=== PATIENT | male | born 1985 | race African-American/Black ===

== ENCOUNTER 2024-06-06 19:52 | Emergency (ER) | payer OTHER, SELFPAY ==
[2024-06-06 20:14] VITALS: BP 157/90; PULSE 113; RESP 15; TEMP 39.1; O2SAT 99
--- NOTE | 2024-06-06 20:26 | ED.URI ---
HPI - URI/Sore Throat General Chief Complaint: Upper Respiratory Infection Stated Complaint: cough Time Seen by Provider: 06/06/24 20:26 Source: patient, RN notes reviewed and old records reviewed Mode of arrival: ambulatory Limitations: no limitations History of Present Illness HPI Narrative: Patient presents with complaints of flu-like symptoms that have been present for 1 day. He has not taken anything for his symptoms. He is not in any distress, but does appear uncomfortable Related Data Allergies Allergy/AdvReac Type Severity Reaction Status Date / Time No Known Allergies Allergy Verified 06/06/24 20:19 Review of Systems Review of Systems: All systems reviewed & are unremarkable except as noted in HPI and below Constitutional: Constitutional: Reports no additional constitutional complaints, Reports body ache(s), Reports chills, Reports excessive sweating, Reports fever(s) and Reports headache(s) ENT: Reports system reviewed and no additional complaints, except as documented, Reports nasal congestion, Reports nasal discharge and Reports sinus pressure Cardiovascular: Cardiovascular: Reports no additional cardiovascular complaints Respiratory: Respiratory: Reports no additional respiratory complaints and Reports cough Gastrointestinal: Gastrointestinal: Reports no additional gastrointestinal complaints PMFSH Comments At the time of my signature, I reviewed and agree with the nursing past medical, surgical, social, and family history. There is no relevant family history pertinent to the patient complaint. Exam Const: General: cooperative, no acute distress, alert and awake Orientation/consciousness: oriented to person, oriented to place and oriented to time HENMT: Head: normal to inspection Resp: Effort & Inspection: normal respiratory effort and able to speak in complete sentences Auscultation: clear to auscultation bilaterally, no crackles, no rales, no rhonchi and no wheezes Cardio: Palpation: normal PMI Rate: regular rate Rhythm: regular rhythm Heart sounds: S1 normal heart sound present and S2 normal heart sound present Neuro: General: oriented to person, oriented to place and oriented to time Cranial nerves: Yes CN's II-XII intact bilaterally Psych: Appearance: grossly normal Thought process: Normal thought process present Insight: Good insight present (Psych) Judgement: Good judgement present (Psych) Course Course Level of Care: Express Care Visit Vital Signs Vital signs: Vital Signs Temperature 102.3 F H 06/06/24 20:14 Pulse Rate 113 H 06/06/24 20:14 Respiratory Rate 15 06/06/24 20:14 Blood Pressure 157/90 H 06/06/24 20:14 Pulse Oximetry 99 06/06/24 20:14 Temperature 102.3 F H 06/06/24 20:14 Pulse Rate 113 H 06/06/24 20:14 Respiratory Rate 15 06/06/24 20:14 Blood Pressure 157/90 H 06/06/24 20:14 Pulse Oximetry 99 06/06/24 20:14 Reviewed MDM - URI/Sore Throat MDM Narrative Medical decision making narrative: Positive influenza. Patient counseled on supportive care measures. Elevated blood pressure, pulse, temperature discussed with patient. He agrees to follow with primary care provider. Emergency department for new or worse symptoms. Discharge instructions reviewed with patient, as well as provided in writing per nursing staff. The instructions also include specific and strict return/GO TO THE ER as well as f/u information. All questions have been answered, and the patient deny any further questions with discharge and discharge plan. Some parts of this dictation were generated by voice recognition software and may contain typographical and/or grammatical inaccuracies. Differential Diagnosis Differential diagnosis: Likely upper respiratory infection, otitis media, sinusitis, viral infection and influenza Medical Records Attestation: I reviewed the patient's medical records. Lab Data Attestation: I reviewed the patient's lab results. Labs: Lab Results 06/06/24 Range/Units 20:10 POC Influenza A Ag Positive (Negative) POC Influenza B Ag Negative (Negative) POC SARS CoV-2 Ag Negative (Negative) Discharge Plan Discharge Clinical Impression: Influenza Patient Disposition: Home, Self-Care Condition: Stable Instructions: Antibiotic Form, Influenza (ED) Additional Instructions: Take medications as prescribed. Follow-up with primary care provider. Emergency department for new or worsening symptoms. Please start taking [id number] medications to treat her symptoms Patient Language: Swedish Prescriptions: New oseltamivir [Tamiflu] 75 mg capsule 75 mg PO Q12H 5 Days Qty: 10 0RF Follow-up/Referrals: PHYSICIAN,REFRIGERATION SYSTEM INSTALLER [Primary Care Provider] - Stand Alone Forms: Work/School Release IP Time of Disposition: 20:31
[2024-06-06 20:36] LABS: EDCOVIDSCREEN Negative (Negative); EDINFLUASCREEN Positive (Negative); EDINFLUBSCREEN Negative (Negative)
== END 2024-06-06 20:33 | disposition home or self-care (01) ==
PROVIDERS: Emergency Provider Nurse Practitioner Family
DX: J10.1 Influenza due to other identified influenza virus with other respiratory manifestations (principal); Z20.822 Contact with and (suspected) exposure to COVID-19
CPT/HCPCS: 87426; 87804; 99203; G0463

== ENCOUNTER 2024-08-30 18:02 | Emergency (ER) | payer OTHER, SELFPAY ==
[2024-08-30 18:11] VITALS: BP 137/84; PULSE 72; RESP 16; TEMP 36.8; O2SAT 96
--- NOTE | 2024-08-30 18:18 | ED.EXTPRO ---
HPI - Extremity Problem General Chief complaint: Extremity Problem,Nontraumatic Stated complaint: Right Arm Pain Time Seen by Provider: 08/30/24 18:18 Source: patient Mode of arrival: ambulatory Limitations: no limitations History of Present Illness HPI Narrative: 39-year-old male presents with complaint of pain to right upper back and right side of neck also to right elbow for 3 days. Denies injury. 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 Taking Aleve with no relief of pain. Normal range of motion. Pain is worse at rest. States less painful when he is up and moving around and working. All systems reviewed and negative except as noted above. Related Data Allergies Allergy/AdvReac Type Severity Reaction Status Date / Time No Known Allergies Allergy Verified 08/30/24 18:18 Review of Systems Review of Systems: CONSTITUTIONAL: Denies fever, chills, or sweats. EYES: Denies visual changes, redness, or discharge. ENT: Denies rhinorrhea, congestion, sore throat, or otalgia. CARDIOVASCULAR: Denies chest pain, palpitations, or edema. RESPIRATORY: Denies cough or dyspnea. GASTROINTESTINAL: Denies abdominal pain, nausea, vomiting, or diarrhea. GENITOURINARY: Denies dysuria or hematuria. SKIN: Denies rash or itching. MUSCULOSKELETAL: Denies back pain, joint pain, or myalgia. Reports pain to right upper extremity and right upper back. NEUROLOGIC: Denies headache, numbness, or weakness. PSYCHIATRIC: Denies anxiety or depression. All other systems reviewed are negative, except as documented in HPI. PMFSH Comments At time of signature, agree with nursing past medical, surgical, social and family history. There is no relevant family history pertinent to the presenting complaint. Exam Narrative: GENERAL: This is a well-nourished, well-developed patient, in no apparent distress. HEAD: normocephalic, atraumatic. EYES: PERRL. Sclera clear/white. Vision is grossly intact. EARS: External ears normal NOSE: External nose normal NECK: Neck supple, without lymphadenopathy, masses or thyromegaly. tenderness R trapezius, full ROM CARDIOVASCULAR: Regular rate and rhythm without murmurs, gallops, or rubs. RESPIRATORY: Clear to auscultation. Breath sounds equal bilaterally. No wheezes, rales, or rhonchi. SKIN: warm, Dry, intact with no suspicious lesions or rash, good texture and turgor. NEURO: awake, alert, and oriented to person, place and time. There were no obvious focal neurologic abnormalities. EXTREMITIES: tenderness to R lateral epicondyle, extensor tendon of R elbow without swelling, erythema or warmth. normal ROM BACK: tender and spasm to R trapezius muscle Course Course Level of Care: Express Care Visit Vital Signs Vital signs: Vital Signs Temperature 36.8 C 08/30/24 18:11 Pulse Rate 72 08/30/24 18:11 Respiratory Rate 16 08/30/24 18:11 Blood Pressure 137/84 08/30/24 18:11 Pulse Oximetry 96 08/30/24 18:11 Oxygen Delivery Room Air 08/30/24 18:11 Temperature 36.8 C 08/30/24 18:11 Pulse Rate 72 08/30/24 18:11 Respiratory Rate 16 08/30/24 18:11 Blood Pressure 137/84 08/30/24 18:11 Pulse Oximetry 96 08/30/24 18:11 Oxygen Delivery Room Air 08/30/24 18:11 reviewed MDM - Extremity (Nontraumatic) MDM Narrative Medical decision making narrative: will treat with predisone and muscle relaxant. recommend ice, heat, stretching and rest. will continue aleve and also take tylenol. alert, nontoxic, CMS intact. Discharge Plan Discharge Clinical Impression: Right elbow tendinitis Strain of right trapezius muscle Qualifiers: Encounter type: initial encounter Qualified Code(s): S46.811A - Strain of other muscles, fascia and tendons at shoulder and upper arm level, right arm, initial encounter Patient Disposition: Home Condition: Stable Instructions: Tennis Elbow (ED), Muscle Strain (ED), Elbow Strain (ED) Additional Instructions: Take medications as prescribed. Methocarbamol as a muscle relaxant may cause drowsiness. Do not drive while taking this medication. Take Tylenol every 6-8 hours as needed for pain. Alternate between ice and heat. Do stretching exercises as tolerated. Follow-up with primary care physician if symptoms are not improving. Patient Language: Khmer Prescriptions: New prednisone 20 mg tablet See Rx Instructions .ROUTE .COMPLEX Qty: 12 0RF Rx Instructions: Take 3 tablets today, then 2 tablets daily for 3 days then 1 tablet daily for 3 days. methocarbamol 750 mg tablet 750 mg PO Q8H PRN (Reason: muscle pain/spasm) Qty: 30 0RF Follow-up/Referrals: PHYSICIAN,PORCELAIN FINISH SPRAYER [Primary Care Provider] - Time of Disposition: 18:28
== END 2024-08-30 18:42 | disposition home or self-care (01) ==
PROVIDERS: Emergency Provider Nurse Practitioner Family
DX: M77.11 Lateral epicondylitis, right elbow (principal); S46.811A Strain of other muscles, fascia and tendons at shoulder and upper arm level, right arm, initial encounter; X58.XXXA Exposure to other specified factors, initial encounter
CPT/HCPCS: 99213; G0463